=== PATIENT | female | born 1985 | race Caucasian/White ===

== ENCOUNTER 2020-02-12 01:40 | Emergency (ER) | payer MEDICAID ==
[~2020-02-12] VITALS: Ht 170.2 cm; Wt 56.8 kg
[2020-02-12] MEDS ORDERED: clindamycin 150mg capsule PO ONE (02:05)
[2020-02-12] MEDS ORDERED: acetaminophen 325mg tablet PO ONE (02:05)
[2020-02-12] MEDS ORDERED: ondansetron 4mg rapidly disintigrating tab PO ONE (02:05)
[2020-02-12] MEDS ORDERED: ACET-812 PO (02:07)
[2020-02-12] MEDS ORDERED: CLIN150C8 PO (02:07)
[2020-02-12 02:12] VITALS: BP 115/88
== END 2020-02-12 02:13 | disposition home or self-care (01) ==
LOC: ER 01:41
DX: K08.89 Other specified disorders of teeth and supporting structures (principal); F15.90 Other stimulant use, unspecified, uncomplicated; Z88.0 Allergy status to penicillin
CPT/HCPCS: 99284